=== PATIENT | female | born 1985 | race Caucasian/White ===

== ENCOUNTER 2019-10-12 16:29 | Emergency (ER) | payer MEDICAID ==
[2019-10-12] MEDS ORDERED: NORMAL SALINE 1000 ML 1,000 ML IV ONE (16:48)
--- NOTE | 2019-10-12 16:51 | ER Document Report ---
ED Medical Screen (RME) - General Stated Complaint: FALL, WEAKNESS, LACERATION TO CHEEK Time Seen by Provider: 10/12/19 16:34 Mode of Arrival: Wheelchair Information source: Patient Notes: Patient presents stating that she has been lethargic and fatigued for the past week. Patient states she is just not felt right. Patient states she has had palpitations off and on over the past week. Family states that they just returned from a trip to the [facility]. Patient was walking stated that she did not feel right and then passed out hitting her face on the corner of the counter. Patient with right cheek laceration. Patient reports jaw pain, neck pain and nausea. I have greeted and performed a rapid initial assessment of this patient. A comprehensive ED assessment and evaluation of the patient, analysis of test results and completion of the medical decision making process will be conducted by additional ED providers. - Related Data Allergies/Adverse Reactions: cefaclor [From Ceclor] Allergy (Unknown, Verified 10/12/19 16:42) Hives Physical Exam - Vital signs Vitals: Temp Pulse Resp Pulse Ox 98.4 F 123 H 22 H 100 10/12/19 16:32 10/12/19 16:32 10/12/19 16:32 10/12/19 16:32 - General General appearance: Alert Notes: Cervical midline tenderness C6-7 area, right cheek facial laceration Course - Vital Signs Vital signs: Temp Pulse Resp BP Pulse Ox 98.4 F 123 H 22 H 118/71 100 10/12/19 16:32 10/12/19 16:32 10/12/19 16:32 10/12/19 16:42 10/12/19 16:32
--- NOTE | 2019-10-12 17:45 | RADIOLOGY REPORT (SQ) ---
EXAM DESCRIPTION: CHEST 2 VIEWS COMPLETED DATE/TIME: 10/12/2019 5:36 pm REASON FOR STUDY: palpitations, syncope COMPARISON: None. EXAM PARAMETERS: NUMBER OF VIEWS: two views TECHNIQUE: Digital Frontal and Lateral radiographic views of the chest acquired. RADIATION DOSE: NA LIMITATIONS: none FINDINGS: LUNGS AND PLEURA: No opacities, masses or pneumothorax. No pleural effusion. MEDIASTINUM AND HILAR STRUCTURES: No masses or contour abnormalities. HEART AND VASCULAR STRUCTURES: Heart normal size. No evidence for failure. BONES: No acute findings. HARDWARE: None in the chest. OTHER: No other significant finding. IMPRESSION: NO ACUTE RADIOGRAPHIC FINDING IN THE CHEST. TECHNICAL DOCUMENTATION: JOB ID: [id number] [employer]- All Rights Reserved Reading location - IP/workstation name: [email or web address]
--- NOTE | 2019-10-12 17:54 | RADIOLOGY REPORT (SQ) ---
EXAM DESCRIPTION: CT HEAD WITHOUT COMPLETED DATE/TIME: 10/12/2019 5:42 pm REASON FOR STUDY: syncope, facial injury, neck pain COMPARISON: None. TECHNIQUE: Axial images acquired through the brain without intravenous contrast. Images reviewed wi th bone, brain and subdural windows. Additional sagittal and coronal reconstructions were generated. Images stored on PACS. All CT scanners at this facility use dose modulation, iterative reconstruction, and/or weight based d osing when appropriate to reduce radiation dose to as low as reasonably achievable (ALARA). [facility]: Dose Right [facility]: CareDose [facility]: Dose Right [facility]: Teradose 4D [facility]: Smart [employer] RADIATION DOSE: CT Rad equipment meets quality standard of care and radiation dose reduction techniq ues were employed. CTDIvol: 53.2 mGy. DLP: 964 mGy-cm. mGy. LIMITATIONS: Body piercing confers metallic beam hardening artifact. FINDINGS: VENTRICLES: Normal size and contour. CEREBRUM: No masses. No hemorrhage. No midline shift. No evidence for acute infarction. Normal gra y/white matter differentiation. No areas of low density in the white matter. CEREBELLUM: No masses. No hemorrhage. No alteration of density. No evidence for acute infarction. EXTRAAXIAL SPACES: No fluid collections. No masses. ORBITS AND GLOBE: No intra- or extraconal masses. Normal contour of globe without masses. CALVARIUM: No fracture. PARANASAL SINUSES: No fluid or mucosal thickening. SOFT TISSUES: No mass or hematoma. OTHER: No other significant finding. IMPRESSION: No evidence of calvarial injury or intracranial hemorrhage. EVIDENCE OF ACUTE STROKE: NO. COMMENT: Quality ID # 436: Final reports with documentation of one or more dose reduction techniques (e.g., Automated exposure control, adjustment of the mA and/or kV according to patient size, use of iterative reconstruction technique) TECHNICAL DOCUMENTATION: JOB ID: [id number] [employer]- All Rights Reserved Reading location - IP/workstation name: [email or web address]
--- NOTE | 2019-10-12 17:55 | RADIOLOGY REPORT (SQ) ---
EXAM DESCRIPTION: CT CERVICAL SPINE WITHOUT COMPLETED DATE/TIME: 10/12/2019 5:42 pm REASON FOR STUDY: syncope, facial injury, neck pain COMPARISON: None. TECHNIQUE: Axial images acquired through the cervical spine without intravenous contrast. Images re viewed with lung, soft tissue and bone windows. Reconstructed coronal and sagittal MPR images review ed. Images stored on PACS. All CT scanners at this facility use dose modulation, iterative reconstruction, and/or weight based d osing when appropriate to reduce radiation dose to as low as reasonably achievable (ALARA). [facility]: Dose Right [facility]: CareDose [facility]: Dose Right [facility]: Teradose 4D [facility]: Smart [employer] RADIATION DOSE: CT Rad equipment meets quality standard of care and radiation dose reduction techniq ues were employed. CTDIvol: 16.8 mGy. DLP: 369 mGy-cm. mGy. LIMITATIONS: None. FINDINGS: ALIGNMENT: Anatomic. MINERALIZATION: Normal. VERTEBRAL BODIES: No fractures or dislocation. DISCS: No significant disc disease. FACETS, LATERAL MASSES, POSTERIOR ELEMENTS: No fractures. No dislocation. No acute findings. HARDWARE: None in the spine. VISUALIZED RIBS: No fractures. LUNG APICES AND SOFT TISSUES: No significant or acute findings. OTHER: No other significant finding. IMPRESSION: NO ACUTE OR SIGNIFICANT FINDINGS IN THE CERVICAL SPINE. TECHNICAL DOCUMENTATION: JOB ID: [id number] Quality ID # [id number]: Final reports with documentation of one or more dose reduction techniques (e.g., Au tomated exposure control, adjustment of the mA and/or kV according to patient size, use of iterative reconstruction technique) 2010 [email or web address]- All Rights Reserved Reading location - IP/workstation name: [email or web address]
--- NOTE | 2019-10-12 17:58 | RADIOLOGY REPORT (SQ) ---
EXAM DESCRIPTION: CT FACIAL AREA WITHOUT COMPLETED DATE/TIME: 10/12/2019 5:42 pm REASON FOR STUDY: syncope, facial injury, neck pain COMPARISON: None. TECHNIQUE: Noncontrasted images through the facial bones and orbits windowed for bone and soft tissu e. Additional coronal and sagittal reconstructed images reviewed. All images stored on PACS. All CT scanners at this facility use dose modulation, iterative reconstruction, and/or weight based d osing when appropriate to reduce radiation dose to as low as reasonably achievable (ALARA). [facility]: Dose Right [facility]: CareDose [facility]: Dose Right [facility]: Teradose 4D [facility]: Smart [employer] RADIATION DOSE: CT Rad equipment meets quality standard of care and radiation dose reduction techniq ues were employed. CTDIvol: 30.4 mGy. DLP: 617 mGy-cm. mGy. LIMITATIONS: Patient motion artifact and body piercing resulting in beam hardening artifact. FINDINGS: FACIAL BONES: No fracture or bone lesion. ORBITS: Intact. No fracture. Symmetric intact globes and retroorbital soft tissues. PARANASAL SINUSES: Clear. No significant mucosal thickening, mass or fluid. No nasal polyps. Maxill jason sinus outlets are patent. SOFT TISSUES: No mass or edema. INFERIOR BRAIN: Limited view. No acute findings. OTHER: No other significant finding. IMPRESSION: NO ACUTE FINDINGS. TECHNICAL DOCUMENTATION: JOB ID: [id number] Quality ID # [id number]: Final reports with documentation of one or more dose reduction techniques (e.g., Au tomated exposure control, adjustment of the mA and/or kV according to patient size, use of iterative reconstruction technique) 2010 [employer]- All Rights Reserved Reading location - IP/workstation name: [email or web address]
--- NOTE | 2019-10-12 18:02 | ER Document Report ---
ED Fall - General Chief Complaint: Fall Injury Stated Complaint: FALL, WEAKNESS, LACERATION TO CHEEK Time Seen by Provider: 10/12/19 16:34 Mode of Arrival: Wheelchair Information source: Patient Notes: Patient is a 34-year-old female who presents the emergency department with a chief complaint of weakness. Patient reports she has been feeling weak for about 1 week. Patient reports that he did just get back from [place] yesterday. She states they did drive from [place] yesterday. Patient reports over the past week she has felt lethargic, fatigued and having intermittent chest palpitations. Patient reports she does get palpitations frequently but they do appear worse over the past week. Patient also reports nausea and epigastric pain. Patient reports a decreased appetite without vomiting or diarrhea. Father reports that this afternoon the patient was walking into the kitchen when she stated she did not feel right and then passed out. Father reports as she fell she did hit the right side of her face on a [place] countertop. He states that the patient did pass out and fall to the floor for a couple of seconds. He does report she lost consciousness. Patient denies chest pain or shortness of breath. - Related data Allergies/Adverse Reactions: cefaclor [From Ceclor] Allergy (Unknown, Verified 10/12/19 16:42) Hives Past Medical History - General Information source: Patient - Social History Smoking Status: Current Every Day Smoker Chew tobacco use (# tins/day): No Frequency of alcohol use: None Drug Abuse: None Lives with: Family Family History: None Patient has suicidal ideation: No Patient has homicidal ideation: No - Past Medical History Cardiac Medical History: Reports: None Pulmonary Medical History: Reports: None EENT Medical History: Reports: None Neurological Medical History: Reports: None Endocrine Medical History: Reports: None Renal/ Medical History: Reports: None Malignancy Medical History: Reports: None GI Medical History: Reports: None Musculoskeletal Medical History: Reports None Skin Medical History: Reports None Psychiatric Medical History: Reports: None Traumatic Medical History: Reports: None Infectious Medical History: Reports: None Review of Systems - Review of Systems Constitutional: See HPI EENT: See HPI Cardiovascular: See HPI Respiratory: No symptoms reported Gastrointestinal: See HPI Genitourinary: No symptoms reported Female Genitourinary: No symptoms reported Musculoskeletal: No symptoms reported Skin: No symptoms reported Hematologic/Lymphatic: No symptoms reported Neurological/Psychological: No symptoms reported Physical Exam - Vital signs Vitals: Temp Pulse Resp Pulse Ox 98.4 F 123 H 22 H 100 10/12/19 16:32 10/12/19 16:32 10/12/19 16:32 10/12/19 16:32 Interpretation: Tachycardic - Notes Notes: GENERAL: Well-appearing, well-nourished and in no acute distress. HEAD: Normocephalic, 1 cm laceration to the right cheek, no active bleeding. Hard c-collar in place. EYES: Pupils equal round and reactive to light 3mm, extraocular movements intact, sclera anicteric, conjunctiva are normal. ENT: TMs normal, nares patent, oropharynx clear without exudates. Moist mucous membranes. Slighty erythematous tonsils. No hot potato voice. NECK: Normal range of motion, supple without lymphadenopathy or JVD. LUNGS: Breath sounds clear to auscultation bilaterally and equal. No wheezes rales or rhonchi. HEART: Regular rate and rhythm without murmurs, rubs or gallops. ABDOMEN: Soft, mild tenderness to epigastric area, normoactive bowel sounds. No guarding, no rebound. No masses appreciated. BACK: No cervical, thoracic, lumbar midline tenderness. No saddle anesthesia, normal distal neurovascular exam. GENITOURINARY: Deferred. EXTREMITIES: Normal range of motion, no pitting or edema. No clubbing or cyanosis. NEUROLOGICAL: Cranial nerves II through XII grossly intact. Normal speech, normal gait. PSYCH: Normal mood, normal affect. SKIN: Warm, Dry, normal turgor, no rashes or lesions noted. Course - Re-evaluation Re-evalutation: 10/12/19 19:10 Upon reevaluation patient is resting comfortably on stretcher but does complain of right cheek pain where she did strike her face on the granite countertop. We will give the patient a dose of IV Toradol. Patient's d-dimer is positive. Patient does have significant risk factors for blood clot to include recent train ride from [place] and a car ride from [place] to [place] which is 16 hours. Patient also smokes cigarettes, and was tachycardic on arrival. Patient denies use of control. I did update the patient and father in regards to the laboratory findings and will obtain a CT of the chest and abdomen. 10/12/19 22:33 I did speak with Dr[address] Mcgrath regarding the patient case. He does recommend getting Orthostatics, obtaining a flu and mono test. 10/12/19 23:00 Patient's orthostatics were negative. Flu and mono test pending. I did clean the small laceration to the right cheek. This does not require suture repair but I will place a Steri-Strip. I did inform the patient and father to keep the area clean and dry and that the Steri-Strips will fall off on its own. 10/12/19 23:31 Steri-Strip was applied to the right facial wound. This is clean and dry with no active bleeding. We will give the patient a [place] as she did have a significant fall and is complaining of jaw pain. Patient denies headache. I did give strict return precautions to the patient and father. [place] test was positive and flu negative. - Vital Signs Vital signs: Temp Pulse Resp BP Pulse Ox 98.6 F 81 17 111/84 100 10/12/19 22:21 10/12/19 22:31 10/12/19 22:48 10/12/19 22:48 10/12/19 22:47 - Laboratory Result Diagrams: 10/12/19 18:03 10/12/19 18:03 Laboratory results interpreted by me: 10/12/19 10/12/19 10/12/19 17:34 18:03 18:03 WBC 20.0 H RBC 5.40 H MCV 77 L MCH 25.7 L RDW 15.1 H Seg Neuts % (Manual) 90 H Lymphocytes % (Manual) 8 L Monocytes % (Manual) 2 L Abs Neuts (Manual) 18.0 H D-Dimer AST 37 H Urine Urobilinogen 4.0 H Ur Leukocyte Esterase TRACE H Monotest 10/12/19 10/12/19 18:03 18:03 WBC RBC MCV MCH RDW Seg Neuts % (Manual) Lymphocytes % (Manual) Monocytes % (Manual) Abs Neuts (Manual) D-Dimer 1.12 H AST Urine Urobilinogen Ur Leukocyte Esterase Monotest POSITIVE H - Diagnostic Test Radiology reviewed: Reports reviewed Radiology results interpreted by me: 10/12/19 18:[address] 10/12/19 16:48 IMPRESSION: NO ACUTE OR SIGNIFICANT FINDINGS IN THE CERVICAL SPINE. Chest X-Ray 10/12/19 16:48 IMPRESSION: NO ACUTE RADIOGRAPHIC FINDING IN THE CHEST. Facial Bones CT 10/12/19 16:48 IMPRESSION: NO ACUTE FINDINGS. Head CT 10/12/19 16:48 IMPRESSION: No evidence of calvarial injury or intracranial hemorrhage. EVIDENCE OF ACUTE STROKE: NO. Cervical Spine CT 10/12/19 16:48 IMPRESSION: NO ACUTE OR SIGNIFICANT FINDINGS IN THE CERVICAL SPINE. Chest X-Ray 10/12/19 16:48 IMPRESSION: NO ACUTE RADIOGRAPHIC FINDING IN THE CHEST. Facial Bones CT 10/12/19 16:48 IMPRESSION: NO ACUTE FINDINGS. Head CT 10/12/19 16:48 IMPRESSION: No evidence of calvarial injury or intracranial hemorrhage. EVIDENCE OF ACUTE STROKE: NO. Abdomen/Pelvis CT 10/12/19 19:09 IMPRESSION: No CT evidence of acute pulmonary embolism. No acute findings within the chest, abdomen, or pelvis. TECHNICAL DOCUMENTATION: Quality ID # 436: Final reports with documentation of one or more dose reduction techniques (e.g., Automated exposure control, adjustment of the mA and/or kV according to patient size, use of iterative reconstruction technique) copyright 2010 [employer]- All Rights Reserved Chest/Abdomen CTA 10/12/19 19:09 IMPRESSION: No CT evidence of acute pulmonary embolism. No acute findings within the chest, abdomen, or pelvis. TECHNICAL DOCUMENTATION: Quality ID # 436: Final reports with documentation of one or more dose reduction techniques (e.g., Automated exposure control, adjustment of the mA and/or kV according to patient size, use of iterative reconstruction technique) copyright 2010 [employer]- All Rights Reserved - EKG Interpretation by Me Additional EKG results interpreted by me: 10/12/19 23:33 Patient is EKG shows sinus tachycardia with heart rate 117. Patient's RI interval 136, QT 324 and QTC is 452. Patient has a normal axis deviation with T wave inversions in lead III. This is not consistent in multiple leads. There is no ST elevation. No ectopy. There is no EKG for comparison. Discharge - Discharge Clinical Impression: Palpitation Mononucleosis Qualifiers: Infectious mononucleosis etiology: unspecified organism Infectious mononucleosis complication: without complication Qualified Code(s): B27.90 - Infectious mononucleosis, unspecified without complication Syncopal episodes Qualifiers: Syncope type: unspecified Qualified Code(s): R55 - Syncope and collapse Head injury due to trauma Qualifiers: Encounter type: initial encounter Qualified Code(s): S09.90XA - Unspecified injury of head, initial encounter Condition: Stable Disposition: HOME, SELF-CARE Additional Instructions: *Today was seen in the emergency department after passing out. It was found t hat you do have mono. This is a viral infection that can last for several weeks. Typically you feel very tired, have a sore throat,, swollen glands, fever and body aches. Sometimes she can even develop a rash. There is no cure for mono. Please rest, drink plenty of fluids and avoid contact sports until you are better. *Please return emergency department if you develop any worsening of symptoms such as severe headache, stiff neck, generalized abdominal pain or fainting. *You did obtain a laceration during your fall this afternoon. I have placed a Steri-Strip on this wound. This will fall off on its own. Please keep the wound clean and dry. Mononucleosis You have been diagnosed as having mononucleosis ("mono"). This is a viral infection which often lasts several weeks. Typically, a week or two of tiredness precedes a sore throat, swollen glands, fever, and aches. Sometimes there's a rash. In severe cases, swollen spleen and liver develop. There is no cure for mononucleosis. You should rest, drink plenty of fluids, and avoid contact sports until you are better. A follow-up examination is usually done in about a week. Further laboratory testing may be necessary then. See the doctor if there is significant worsening of the symptoms or onset of new symptoms such as severe headache, stiff neck, generalized abdominal pain, or faintness. Syncopal Episode Syncope (fainting or near-fainting) can occur from many different health problems. Or it can be a simple fainting spell requiring no treatment. It is s afe for you to go home, but further evaluation will likely be necessary. Your work-up may include tests for internal bleeding, heart disease, medication problems, or near-strokes. Tests are not always required, however, depending on the nature of your problem. The warning signs of an impending faint include: dizziness, lightheadedness, nausea, hot flashes, tingling, and weakness. If this happens, lay down and put your feet up, then wait until all of these symptoms have passed before standing up again. If these episodes become recurrent, or if you develop chest pain, heart palpitations, mental confusion, blurred vision, or headache, then you should call the physician, or go to the emergency room. Palpitations (Irregular/Rapid Heartrate) Irregular or rapid heartbeat is called "palpitation." To diagnose the cause of palpitation, we have to "catch it in the act" with an EKG. Sinus Tachycardia: This is a rapid (but NORMAL) rhythm that can be due to fever, pain, anxiety, lack of sleep, over-exertion, or drugs. Cold medications, caffeine, and diet pills are particularly likely to cause tachycardia. Usually, all that's required is rest, reassurance, and avoiding caffeine, alcohol, nicotine, and unnecessary medicines. Paroxysmal Atrial Tachycardia (PAT): This abnormally rapid heartbeat is caused by a "short circuit" in the electrical system of the heart. It is not dangerous, unless other heart disease is present. These attacks of PAT may occur occasionally for years. Medication is available for treatment. Paroxysmal Atrial Fibrillation or Atrial Flutter: This is irregular electrical activity in the upper heart chamber. These abnormal rhythms often occur with valve disease or in hearts damaged by hardening of the arteries. These rhythms usually require further testing, for example a cardiac echo. Premature Beats: Extra beats occur more commonly after caffeine, nicotine, alcohol, cold pills, diet pills. Emotional stress or fatigue also provoke them. Extra beats are only dangerous when heart disease is present. They usually need no treatment. If they're frequent, or if evidence of heart disease develops, medication can be given to suppress them. If we were unable to "catch" the palpitations on EKG, you should try to get an EKG immediately if the symptoms begin again. Contact the physician at once if you develop persistent lightheadedness, shortness of breath, chest pain, or swelling of the ankles. Head Injury Your child's examination shows no evidence of brain injury. The child can therefore be safely observed at home. Give clear liquids only for the first eight hours. Acetaminophen or ibuprofen can safely be given for pain. Follow the directions on the bottle. Do not give any medication that may alter her/his level of alertness. Limit activity for the first 24 hours -- bed rest is advisable at first. Several times during the first 24 hours, check the patient to see if the pupils are equal in size to each other, that the patient is easily arousable, and responds normally. Contact your doctor or go to the hospital if any of the following things occur: Persistent or projectile vomiting, a seizure, confusion, unequal pupil size, difficulty in arousing the patient, worsening or continued headache, or failure to improve as expected. Head Injury Precautions At this point, there is no evidence that your head injury is serious. Observation is necessary, however. Take only clear liquids for the first few hours, unless told otherwise by the doctor. If no pain medication was prescribed, you may take acetaminophen according to the directions on the bottle. Do not take any medication that may alter your level of alertness (unless you've discussed it with the doctor first). Limit activity for the first 24 hours. Bed rest is best. During the first 24 hours, check to see approximately every two to three hours that the patient is easily arousable, responds normally, and can perform common tasks such as walking without difficulty. Contact your doctor or go to the hospital if any of the following things occur: Persistent vomiting, difficulty in arousing the patient, worsening or continued headache, or failure to improve as expected. Head injuries can cause symptoms that persist for a few days or even a few weeks. Prescriptions: Ibuprofen [Motrin 800 mg Tablet] 800 mg PO Q8H PRN #30 tab PRN Reason:
[2019-10-12 18:07] LABS: APPEARANCE,URINE CLEAR; BILIRUBIN,URINE NEGATIVE (NEGATIVE); COLOR,URINE YELLOW; GLUCOSE, URINE NEGATIVE (NEGATIVE); KETONES,URINE NEGATIVE (NEGATIVE); LEUKOCYTE ESTERASE,URINE TRACE (NEGATIVE); NITRITE,URINE NEGATIVE (NEGATIVE); PROTEIN,URINE NEGATIVE (NEGATIVE); URINE SPECIFIC GRAVITY 1.017
[2019-10-12 18:18] LABS: URINE AMPHETAMINES SCREEN NEGATIVE; URINE BARBITURATES SCREEN NEGATIVE; URINE BENZODIAZEPINES SCREEN NEGATIVE; URINE COCAINE SCREEN NEGATIVE; URINE METHADONE SCREEN NEGATIVE; URINE PHENCYCLIDINE SCREEN NEGATIVE
[2019-10-12 18:18] LABS: HEMATOCRIT 41.5 % (36.0-47.0); HEMOGLOBIN 13.9 g/dL (12.0-15.5); MEAN CORPUSCULAR HEMOGLOBIN 25.7 pg (27.0-33.4); MEAN CORPUSCULAR HGB CONC 33.5 g/dL (32.0-36.0); MEAN CORPUSCULAR VOLUME 77 fl (80-97); PLATELET COUNT 300 10^3/uL (150-450); RED CELL DISTRIBUTION WIDTH 15.1 % (11.5-14.0)
[2019-10-12 18:39] LABS: ALBUMIN 4.3 g/dL (3.5-5.0); ALKALINE PHOSPHATASE 121 U/L (38-126); ANION GAP 9 (5-19); ASPARTATE AMINO TRANSFERASE 37 U/L (14-36); BILIRUBIN,DIRECT 0.2 mg/dL (0.0-0.4); BILIRUBIN,TOTAL 0.3 mg/dL (0.2-1.3); BLOOD UREA NITROGEN 18 mg/dL (7-20); CALCIUM 9.5 mg/dL (8.4-10.2); CARBON DIOXIDE 25 mmol/L (22-30); CHLORIDE 104 mmol/L (98-107); GLUCOSE 108 mg/dL (75-110); TOTAL PROTEIN 7.9 g/dL (6.3-8.2)
[2019-10-12 18:43] LABS: URINE MARIJUANA (THC) SCREEN UNCONFIRMED POSITIVE
[2019-10-12 18:44] LABS: ABSOLUTE LYMPHOCYTES# (MANUAL) 1.6 10^3/uL (0.5-4.7); ABSOLUTE MONOCYTES # (MANUAL) 0.4 10^3/uL (0.1-1.4); BASOPHILS % (MANUAL) 0 % (0-2); EOSINOPHILS % (MANUAL) 0 % (0-6); LYMPHOCYTES % (MANUAL) 8 % (13-45); MONOCYTES % (MANUAL) 2 % (3-13); SEGMENTED NEUTROPHILS % (MAN) 90 % (42-78); TOTAL CELLS COUNTED 100
[2019-10-12 18:45] LABS: SMUDGE CELLS PRESENT; TOXIC VACUOLATION PRESENT
[2019-10-12 18:46] LABS: ANISOCYTOSIS SLIGHT; PLATELET COMMENT ADEQUATE
[2019-10-12 18:56] LABS: FREE T3 4.63 pg/mL (2.77-5.27); FREE T4 (FREE THYROXINE) 1.14 ng/dL (0.78-2.19)
[2019-10-12] MEDS ORDERED: KETOROLAC TROMETHAMINE INJ/PF 30 MG/1 ML SDV IV ONE ×2 (19:09→22:14)
[2019-10-12 19:10] LABS: THYROID STIMULATING HORMONE 1.56 uIU/mL (0.47-4.68)
[2019-10-12] MEDS ORDERED: MORPHINE SULFATE 10 MG/ML INJ IV ONE (19:54)
--- NOTE | 2019-10-12 21:28 | RADIOLOGY REPORT (SQ) ---
EXAM DESCRIPTION: CT CHEST ANGIOGRAPHY WITHOUT THEN WITH IV CONTRAST, CT ABDOMEN PELVIS WITH IV CONTRAST COMPLETED DATE/TME: 10/12/2019 19:09 CLINICAL HISTORY: 34 years, Female, + d-dimer, palpitations COMPARISON: None. TECHNIQUE: Axial CT images of the chest, abdomen, and pelvis were obtained after the administration of IV contrast. MPR and MIP reconstructions were performed. DL [id number] Images stored on PACS. All CT scanners at this facility use dose modulation, iterative reconstruction, and/or weight based dosing when appropriate to reduce radiation dose to as low as reasonably achievable (ALARA). [facility]: Dose Right [facility]: CareDose [facility]: Dose Right [facility]: Teradose 4D [facility]: [employer] LIMITATIONS: None. FINDINGS: CT chest: Thoracic aorta: Unremarkable. Heart: No right atrial thrombus. RV/LV ratio: Within normal limits. Pulmonary arteries: There is suboptimal opacification of the pulmonary arteries. No large central pulmonary embolism is detected. Mediastinum: No pathologic sized middle mediastinal lymphadenopathy. Tracheobronchial tree: Unremarkable. Lungs: Lobar consolidation: Negative. Pleural effusion: Negative. Pneumothorax: Negative. Other: Negative. Bones: Unremarkable. CT abdomen and pelvis: Solid abdominal viscera: Liver: Unremarkable. Gallbladder: Unremarkable. Pancreas: Unremarkable. Spleen: Unremarkable. Adrenal glands: Unremarkable. Right kidney: No hydronephrosis. Left kidney: No hydronephrosis. Urinary bladder: Unremarkable. Abdominal aorta: Unremarkable. Peritoneal: Free fluid: None. Free air: None. Other: No pathologic sized lymph nodes in the upper abdomen. A stimulator device has its lead terminating within the left pelvis. Bowel: Stomach: Unremarkable. Small bowel: Unremarkable. Appendix: Unremarkable. Colon: Unremarkable. Rectum: Unremarkable. Uterus: Unremarkable. Bones: Unremarkable. IMPRESSION: No CT evidence of acute pulmonary embolism. No acute findings within the chest, abdomen, or pelvis. TECHNICAL DOCUMENTATION: Quality ID # [id number]: Final reports with documentation of one or more dose reduction techniques (e.g., Automated exposure control, adjustment of the mA and/or kV according to patient size, use of iterative reconstruction technique) copyright 2010 [employer]- All Rights Reserved
[2019-10-12 23:19] LABS: A TYPE INFLUENZA AG NEGATIVE (NEGATIVE)
[2019-10-12 23:20] LABS: B INFLUENZA AG NEGATIVE (NEGATIVE)
[2019-10-12] MEDS ORDERED: HYDROCODONE/ACETAMINOPHEN 5-325 MG TABLET PO ONE (23:31)
[2019-10-12 23:52] VITALS: BP 112/68
--- NOTE | 2019-10-13 12:27 | EKG REPORT ---
SEVERITY:- ABNORMAL ECG - SINUS TACHYCARDIA INCOMPLETE RIGHT BUNDLE BRANCH BLOCK : Confirmed by: Meme Ariza 13-Oct-2019 12:27:08
== END 2019-10-12 23:52 | disposition home or self-care (01) ==
LOC: ER 16:29
DX: S09.90XA Unspecified injury of head, initial encounter (principal); R55 Syncope and collapse; B27.90 Infectious mononucleosis, unspecified without complication; R00.2 Palpitations; R11.0 Nausea; R10.13 Epigastric pain; W18.30XA Fall on same level, unspecified, initial encounter; Y92.000 Kitchen of unspecified non-institutional (private) residence as the place of occurrence of the external cause; F17.210 Nicotine dependence, cigarettes, uncomplicated
CPT/HCPCS: 93005; 99285; 96361; 96374; 96375; 36415; 87040; 84439; 84443; 84703; 85025; 86308; 80053; 81001; 84484; 80307; 84481; 85379; 87804; 71046; 70450; 70486; 71275; 72125; 74177; 93010; L0120; J1885; J2270; J7030